=== PATIENT | female | born 1995 | race African-American/Black ===

== ENCOUNTER 2022-07-25 20:33 | Emergency (ER) | payer BC ==
[~2022-07-25] VITALS: Ht 167.6 cm; Wt 62.1 kg
--- NOTE | 2022-07-25 21:10 | NUR ---
STEPHEN FROM HOME C/O LOWER ABD PAIN 4/10 X1 HR. 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 -N/V/D. PATIENT IS AAOX4. ABLE TO MAKE NEEDS KNOWN. ATTACHED TO MONITOR. VITALS CHECKED.
--- NOTE | 2022-07-25 21:16 | NUR ---
URINE SPECIMEN SENT TO LAB
[2022-07-25 21:48] LABS: BASOPHILS # (AUTO) 0.1 K/uL (0.0-0.2); BASOPHILS % (AUTO) 0.7 % (0.0-2.0); EOSINOPHILS % (AUTO) 0.9 % (0.0-6.0); HEMATOCRIT 40 % (33-45); HEMOGLOBIN 13.4 g/dL (11.5-14.8); LYMPHOCYTES # (AUTO) 2.7 K/uL (0.8-4.8); LYMPHOCYTES % (AUTO) 27.6 % (20.0-44.0); MEAN CORPUSCULAR HGB CONC 34 g/dl (31.0-36.0); MEAN CORPUSCULAR VOLUME 92 fL (82-100); MONOCYTES % (AUTO) 10.3 % (2.0-12.0); NEUTROPHILS % (AUTO) 60.5 % (43.0-81.0); PLATELET COUNT (AUTO) 206 K/uL (150-450); RED BLOOD CELL COUNT(AUTO) 4.39 MIL/uL (4.0-5.2); WHITE BLOOD COUNT (AUTO) 9.9 K/uL (4.3-11.0)
[2022-07-25 21:56] LABS: CREATININE 1.1 mg/dL (0.6-1.3); POTASSIUM 3.9 mmol/L (3.5-5.1)
[2022-07-25 22:02] LABS: ALBUMIN 4.2 g/dL (3.4-5.0); BILIRUBIN,DIRECT 0.1 mg/dL (0.0-0.2); BILIRUBIN,TOTAL 0.5 mg/dL (0.2-1.0); TOTAL PROTEIN, SERUM 7.7 g/dL (6.4-8.2)
[2022-07-25 22:10] LABS: BILIRUBIN,URINE SMALL (NEGATIVE); COLOR,URINE YELLOW (YELLOW); LEUKOCYTE ESTERASE ,URINE NEGATIVE (NEGATIVE); NITRITE, URINE NEGATIVE (NEGATIVE); PH,URINE 5.5 (5.0-8.0); PROTEIN,URINE NEGATIVE (NEGATIVE); UGLUCOSE NEGATIVE (NEGATIVE)
[2022-07-25 22:17] LABS: BACTERIA,URINE 1+ /HPF (None Seen); MUCUS,URINE Few /LPF (None Seen); RBC,URINE 0-2 /HPF (0-2)
--- NOTE | 2022-07-25 22:40 | NUR ---
DEMETRIA KLINE AT BEDSIDE
--- NOTE | 2022-07-26 00:50 | NUR ---
CALLED [facility] TO F/U US REPORT; NOTIFIED RADIOLOGY IMAGE HAS NOT BEEN RECIEVED.
--- NOTE | 2022-07-26 01:48 | NUR ---
CALLED [facility] & SPOKE TO ALEJA TO F/U US REPORT. NOTIFIED RADIOLOGY REQUISITION HAS NOT BEEN RECIEVED. WILL F/U WITH [facility]. DR. LAW RAMOS AWARE
--- NOTE | 2022-07-26 01:58 | NUR ---
Patient discharged to home in stable condition. Written and verbal after care instructions given. Patient verbalizes understanding of instruction.
[2022-07-26 02:00] VITALS: BP 114/73
== END 2022-07-26 02:02 | disposition home or self-care (01) ==
LOC: ER 20:40
DX: R10.31 Right lower quadrant pain (principal); R10.2 Pelvic and perineal pain; Z90.89 Acquired absence of other organs; Z60.2 Problems related to living alone
CPT/HCPCS: 36415; 76856-TC; 80048-TC; 80076-TC; 81001; 83690-TC; 84703-TC; 85025-TC